=== PATIENT | male | born 1940 | race Caucasian/White ===

== ENCOUNTER 2020-04-28 13:51 | Emergency (ER) | payer MEDICARE ==
[2020-04-28] MEDS ORDERED: Adenosine 6 MG/2 ML SDV IVPUSH ONE (14:33)
[2020-04-28] MEDS ORDERED: Sodium Chloride 0.9% 1,000 ML IV SCH (14:45)
[2020-04-28] MEDS ORDERED: Diltiazem 25 MG/5 ML SDV IVPUSH ONE (14:45)
--- NOTE | 2020-04-28 14:53 | EDM.PDOC ---
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 He woke up this am and he thought his heart was rapid at 5 am. He has been dizzy and sob since this time. He has not had chest pain. He has been feeling well. Onset: Today, Sudden Duration: Hour(s): Location: Reports: Chest, Generalized Associated Symptoms: Reports: Shortness of Breath, Weakness - Related Data Allergies Allergy/AdvReac Type Severity Reaction Status Date / Time No Known Allergies Allergy Verified 04/28/20 14:20 Home Meds: Home Meds Ascorbic Acid [Vitamin C] 2 tab PO DAILY 04/28/20 [History] Fluticasone Propionate [Flonase] 2 spray IH DAILY 04/28/20 [History] Saw [place] 2 cap PO DAILY 04/28/20 [History] Past Medical History HEENT History: Reports: Impaired Vision Cardiovascular History: Reports: Arrhythmia Genitourinary History: Reports: Prostate Disorder Musculoskeletal History: Reports: RA Neurological History: Reports: Concussion - Infectious Disease History Infectious Disease History: Reports: Chicken Pox, Measles, Mumps - Past Surgical History Head Surgeries/Procedures: Reports: None HEENT Surgical History: Reports: None Cardiovascular Surgical History: Reports: None Neurological Surgical History: Reports: None Musculoskeletal Surgical History: Reports: None Dermatological Surgical History: Reports: None Social & Family History - Tobacco Use Tobacco Use Status *Q: Never Tobacco User Second Hand Smoke Exposure: No - Caffeine Use Caffeine Use: Reports: Coffee - Alcohol Use Days Per Week of Alcohol Use: 7 Number of Drinks Per Day: 1 Total Drinks Per Week: 7 - Recreational Drug Use Recreational Drug Use: No ED ROS GENERAL - Review of Systems Review Of Systems: See Below Constitutional: Reports: No Symptoms HEENT: Reports: No Symptoms Respiratory: Reports: Shortness of Breath Cardiovascular: Reports: Palpitations Endocrine: Reports: No Symptoms GI/Abdominal: Reports: No Symptoms : Reports: No Symptoms Musculoskeletal: Reports: No Symptoms Skin: Reports: No Symptoms Neurological: Reports: Dizziness Psychiatric: Reports: Anxiety ED EXAM, GENERAL - Physical Exam Exam: See Below Free Text/Narrative:: pt is a very pleasant pt who arrived with a rapid heartrate in the 140 range. He has not had chest pain. He is normally very active. Exam Limited By: No Limitations General Appearance: Alert, Anxious, Mild Distress Ears: Normal TMs Nose: Normal Inspection Throat/Mouth: Normal Inspection Head: Atraumatic Neck: Normal Inspection Respiratory/Chest: No Respiratory Distress Cardiovascular: Regular Rate, Rhythm, Tachycardia, Other (pt has a heart rate in the 140 range. ) GI/Abdominal: Soft, Non-Tender (Male) Exam: Deferred Rectal (Males) Exam: Deferred Back Exam: Normal Inspection Extremities: Normal Inspection Neurological: Alert, Oriented, Normal Cognition Psychiatric: Anxious Course - Vital Signs Last Recorded V/S: Last Vital Signs Temp 36.8 C 04/28/20 14:29 Pulse 140 H 04/28/20 15:53 Resp 16 04/28/20 15:53 BP 140/83 04/28/20 15:53 Pulse Ox 98 04/28/20 15:53 Orthostatic Blood Pressure [ 115/78 Standing] Orthostatic Blood Pressure [ 109/70 Sitting] Orthostatic Blood Pressure [ 130/87 Supine] - Orders/Labs/Meds Orders: Active Orders 24 hr Category Date Time Status EKG Documentation Completion [RC] ASDIRECTED Care 04/28/20 14:12 Active Diltiazem [Cardizem] 100 mg Med 04/28/20 15:00 Active Sodium Chloride 0.9% [Normal Saline] 100 ml IV TITRATE Sodium Chloride 0.9% [Normal Saline] 1,000 ml Med 04/28/20 14:45 Active IV ASDIRECTED EKG 12 Lead [EK] Routine Ther 04/28/20 14:12 Ordered Medication Orders Sodium Chloride (Normal Saline) 1,000 mls @ 300 mls/hr IV ASDIRECTED TAM Last Admin: 04/28/20 14:59 Dose: 300 mls/hr Documented by: NEGRO Diltiazem HCl 100 mg/ Sodium (Chloride) 100 mls @ 5 mls/hr IV TITRATE TAM; Protocol Last Admin: 04/28/20 15:00 Dose: 5 mg/hr, 5 mls/hr Documented by: NERGO Labs: Laboratory Tests 04/28/20 04/28/20 04/28/20 Range/Units 14:19 14:19 14:19 WBC 10.4 (4.5-11.0) K/uL RBC 4.40 (4.30-5.90) M/uL Hgb 14.3 (12.0-15.0) g/dL Hct 41.9 (40.0-54.0) % MCV 95 (80-98) fL MCH 33 H (27-31) pg MCHC 34 (32-36) % Plt Count 265 (150-400) K/uL Neut % (Auto) 83 H (36-66) % Lymph % (Auto) 11 L (24-44) % [place] % (Auto) 6 (2-6) % Eos % (Auto) 1 L (2-4) % Baso % (Auto) 0 (0-1) % Sodium 141 (140-148) mmol/L Potassium 4.0 (3.6-5.2) mmol/L Chloride 106 (100-108) mmol/L Carbon Dioxide 24 (21-32) mmol/L Anion Gap 11.1 (5.0-14.0) mmol/L BUN 22 H (7-18) mg/dL Creatinine 1.1 (0.8-1.3) mg/dL Est Cr Clr Drug Dosing 55.14 mL/min Estimated GFR (MDRD) > 60 (>60) Glucose 146 H (74-106) mg/dL Calcium 9.1 (8.5-10.1) mg/dL Magnesium 1.9 (1.8-2.4) mg/dL Total Bilirubin 0.5 (0.2-1.0) mg/dL AST 17 (15-37) U/L ALT 29 (12-78) U/L Alkaline Phosphatase 91 (46-116) U/L Troponin I 0.041 (0.000-0.056) ng/mL NT-Pro-B Natriuret Pep 843 H (5-450) pg/mL Total Protein 7.3 (6.4-8.2) g/dL Albumin 3.6 (3.4-5.0) g/dL Globulin 3.7 H (2.3-3.5) g/dL Albumin/Globulin Ratio 1.0 L (1.2-2.2) TSH, Ultra Sensitive 1.039 (0.358-3.740) uIU/mL Urine Color (YELLOW) Urine Appearance (CLEAR) Urine pH (5.0-8.0) Ur Specific [employer] (1.008-1.030) Urine Protein (NEGATIVE) mg/dL Urine Glucose (UA) (NEGATIVE) mg/dL Urine Ketones (NEGATIVE) mg/dL Urine Occult Blood (NEGATIVE) Urine Nitrite (NEGATIVE) Urine Bilirubin (NEGATIVE) Urine Urobilinogen (0.2-1.0) EU/dL Ur Leukocyte Esterase (NEGATIVE) Urine RBC (0-5) Urine WBC (0-5) Ur Epithelial Cells Amorphous Sediment Urine Bacteria Urine Mucus Urine Other 04/28/20 Range/Units 14:21 WBC (4.5-11.0) K/uL RBC (4.30-5.90) M/uL Hgb (12.0-15.0) g/dL Hct (40.0-54.0) % MCV (80-98) fL MCH (27-31) pg MCHC (32-36) % Plt Count (150-400) K/uL Neut % (Auto) (36-66) % Lymph % (Auto) (24-44) % [place] % (Auto) (2-6) % Eos % (Auto) (2-4) % Baso % (Auto) (0-1) % Sodium (140-148) mmol/L Potassium (3.6-5.2) mmol/L Chloride (100-108) mmol/L Carbon Dioxide (21-32) mmol/L Anion Gap (5.0-14.0) mmol/L BUN (7-18) mg/dL Creatinine (0.8-1.3) mg/dL Est Cr Clr Drug Dosing mL/min Estimated GFR (MDRD) (>60) Glucose (74-106) mg/dL Calcium (8.5-10.1) mg/dL Magnesium (1.8-2.4) mg/dL Total Bilirubin (0.2-1.0) mg/dL AST (15-37) U/L ALT (12-78) U/L Alkaline Phosphatase (46-116) U/L Troponin I (0.000-0.056) ng/mL NT-Pro-B Natriuret Pep (5-450) pg/mL Total Protein (6.4-8.2) g/dL Albumin (3.4-5.0) g/dL Globulin (2.3-3.5) g/dL Albumin/Globulin Ratio (1.2-2.2) TSH, Ultra Sensitive (0.358-3.740) uIU/mL Urine Color Yellow (YELLOW) Urine Appearance Clear (CLEAR) Urine pH 6.0 (5.0-8.0) Ur Specific [employer] 1.025 (1.008-1.030) Urine Protein 100 H (NEGATIVE) mg/dL Urine Glucose (UA) 100 H (NEGATIVE) mg/dL Urine Ketones Negative (NEGATIVE) mg/dL Urine Occult Blood Small H (NEGATIVE) Urine Nitrite Negative (NEGATIVE) Urine Bilirubin Negative (NEGATIVE) Urine Urobilinogen 0.2 (0.2-1.0) EU/dL Ur Leukocyte Esterase Negative (NEGATIVE) Urine RBC 0-5 (0-5) Urine WBC 0-5 (0-5) Ur Epithelial Cells Few Amorphous Sediment Rare Urine Bacteria Occasional Urine Mucus Occasional Urine Other Meds: Medications Generic Name Dose Route Start Last Admin Trade Name Freq PRN Reason Stop Dose Admin Sodium Chloride 1,000 mls @ 300 mls/hr 04/28/20 14:45 04/28/20 14:59 Normal Saline IV 300 mls/hr ASDIRECTED TAM Administration Diltiazem HCl 100 mg/ Sodium 100 mls @ 5 mls/hr 04/28/20 15:00 04/28/20 15:00 Chloride IV 5 mg/hr TITRATE TAM 5 mls/hr Administration Protocol 5 MG/HR Discontinued Medications Generic Name Dose Route Start Last Admin Trade Name Freq PRN Reason Stop Dose Admin Adenosine 6 mg 04/28/20 14:33 04/28/20 14:39 Adenocard IVPUSH 04/28/20 14:34 6 mg NOW ONE Administration Diltiazem HCl 10 mg 04/28/20 14:45 04/28/20 14:56 Diltiazem IVPUSH 04/28/20 14:46 10 mg ONETIME ONE Administration Etomidate 10 mg 04/28/20 16:30 Amidate .ROUTE 04/28/20 16:31 .STK-MED ONE - Re-Assessments/Exams Free Text/Narrative Re-Assessment/Exam: 04/28/20 16:48 pt was given adenogaard iv and he did slow down and he was in atrial flutter. He was given 10 mg bolus and a drip of cardiozem which did not slow the rhythm. Dr Shaikh did see the pt and decided to cardiovert. With 2 shocks he did convert and his rate is 69. His ekg showed a regular rate at [address] changes. Departure - Departure Time of Disposition: 16:50 Disposition: Home, Self-Care 01 Condition: Fair Clinical Impression: Atrial flutter - Discharge Information Referrals: PCP,None [Primary Care Provider] - Forms: ED Department Discharge Care Plan Goals: pt should push fluids, low activity, no rigorous activity for the next few days. continue same meds, rtc if poblems. Sepsis Event Note (ED) - Evaluation Sepsis Screening Result: No Definite Risk - Focused Exam Vital Signs: Vital Signs Temp Pulse Resp BP Pulse Ox 04/28/20 15:53 140 H 16 140/83 98 04/28/20 15:19 137 H 11 L 128/86 97 04/28/20 15:08 136 H 17 113/86 96 04/28/20 14:29 36.8 C 138 H 15 130/87 100 04/28/20 14:28 36.8 C 138 H 15 130/87 100 - My Orders Last 24 Hours: My Active Orders 04/28/20 14:12 EKG Documentation Completion [RC] ASDIRECTED EKG 12 Lead [EK] Routine 04/28/20 14:45 Sodium Chloride 0.9% [Normal Saline] 1,000 ml IV ASDIRECTED 04/28/20 15:00 Diltiazem [Cardizem] 100 mg Sodium Chloride 0.9% [Normal Saline] 100 ml IV TITRATE - Assessment/Plan Last 24 Hours: My Active Orders 04/28/20 14:12 EKG Documentation Completion [RC] ASDIRECTED EKG 12 Lead [EK] Routine 04/28/20 14:45 Sodium Chloride 0.9% [Normal Saline] 1,000 ml IV ASDIRECTED 04/28/20 15:00 Diltiazem [Cardizem] 100 mg Sodium Chloride 0.9% [Normal Saline] 100 ml IV TITRATE
--- NOTE | 2020-04-28 14:56 | CR ---
CHEST: Portable 04/28/2020 at 2:33 PM CLINICAL HISTORY:Rapid heart rate COMPARISON:None FINDINGS: The heart size, pulmonary vascularity and hilar structures are normal. No infiltrate effusion or pneumothorax is seen. There are atherosclerotic changes in the aorta. There are severe degenerative changes in both shoulders IMPRESSION: No acute cardiopulmonary process.
[2020-04-28] MEDS ORDERED: Diltiazem 100 MG in Sodium Chloride 0.9% 100 ML IV SCH (15:00)
[2020-04-28] MEDS ORDERED: Etomidate 2 MG/ML 10 ML SDV ONE (16:30)
--- NOTE | 2020-04-28 16:48 | PCM.PRNOTE ---
- Free Text/Narrative Note: Date of service: 04/28/20 Proposed procedure: Synchronized cardioversion Preprocedure diagnosis: Paroxysmal atrial flutter with rapid ventricular response Post procedure diagnosis: Paroxysmal atrial flutter with rapid ventricular response Indication for procedure: Mode was evaluated today for management atrial of f lutter with symptoms and rapid ventricular response. Synchronized cardioversion was recommended as a primary treatment. Description of the procedure: Mode is currently located [facility]. We have r eviewed the potential risks of electrical cardioversion including but not limited to: Superficial skin birch, ineffective treatment, other arrhythmias, reaction to anesthesia medications or potentially asystole. The benefits of the procedure have also been reviewed. At this time the patient wishes to proceed with electrical cardioversion. All necessary pre-procedure information and paperwork has been provided and completed, respectively. The patient was connected to cardioversion pads and monitoring equipment per protocol. Prior to the procedure, a timeout was held with nursing and anesthesia present to confirm the right patient and right procedure. Once appropriate anesthesia was applied the machine was charged to 50 Joules and a synchronized electrical shock was applied. The patient was successfully converted to normal sinus rhythm based on telemetry monitoring. They will remain in their current location until anesthesia has dissipated and the patient is more awake and alert. They will then be discharged to home once medically stable. There were no immediate complications noted from the procedure. Post procedure EKG is pending at the time of dictation. Catsillo Shaikh M.D.
== END 2020-04-28 17:07 | disposition home or self-care (01) ==
LOC: JP.ED 13:51
DX: I48.92 Unspecified atrial flutter (principal)
CPT/HCPCS: 36415; 71045; 71045-26; 80053; 81001; 83735; 83880; 84443; 84484; 85025; 92960; 93005; 96365; 96366; 96375; 99284; 99285-25; J0153; J3490; J7030